=== PATIENT | female | born 1980 | race Caucasian/White ===

== ENCOUNTER 2020-02-01 00:29 | Outpatient (CLI) | payer BC, SELFPAY ==
[2020-02-01 19:00] LABS: SARS-CoV-2 RNA PCR Negative
== END 2020-02-01 00:30 | disposition home or self-care (01) ==
LOC: ANHCOVIDDT 00:29
PROVIDERS: PCP Physician Assistant; Visit Provider Internal Medicine Gastroenterology
DX: Z01.812 Encounter for preprocedural laboratory examination (principal); Z20.828 Contact with and (suspected) exposure to other viral communicable diseases
CPT/HCPCS: 87635; C9803; U0003

== ENCOUNTER 2020-02-03 00:51 | Day surgery (SDC) | payer BC, SELFPAY ==
[2020-01-27 10:31] VITALS: BMI 45.3
[2020-02-03 09:51] VITALS: BP 118/66; PULSE 90; RESP 18; TEMP 36.6; O2SAT 100; BMI 45.0
--- NOTE | 2020-02-03 10:03 | WPDANESEPPF ---
Anes - Initial Pre Proc Eval Procedure: Operation Date: 02/03/20 10:30 Proposed Procedures p Colonoscopy - Lobo Simmons MD Date/Time: 02/03/20 10:03 Surgeon: Lobo Simmons MD Pre Op Diagnosis: Change in Bowel Habits, Diarrhea Patient Data Age: 39 Gender: F Height: 5 ft 4 in Weight: 119 kg Last Vital Signs Temp 36.6 C 02/03/20 09:51 Pulse 90 02/03/20 09:51 Resp 18 02/03/20 09:51 BP 118/66 02/03/20 09:51 Pulse Ox 100 02/03/20 09:51 Allergies Allergy/AdvReac Type Severity Reaction Status Date / Time tetrahydrozoline Allergy Swelling Verified 02/03/20 09:49 [From Visine] of the Eye Home Medications Medication Instructions Recorded Confirmed Type albuterol sulfate 2 puff INHALATION PRN PRN 01/27/20 01/27/20 History alprazolam 0.125 mg PO PRN PRN 01/27/20 01/27/20 History amitriptyline 10 mg PO HS 01/27/20 02/03/20 History Patient hx anesthesia problems: none Family hx anesthesia problems: none [facility] Past Medical History Medical History (Updated 02/03/20 @ 10:25 by Abdoul Galvez MD) Anxiety Asthma Morbid obesity Surgical History Surgical History (Updated 02/03/20 @ 10:26 by Abdoul Galvez MD) History of ankle surgery History of section Social History Social History Smoking packs per day: 1 Smoking cigarettes per day: 20.0 Years smoked: 20 Smoking pack-years: 20.00 Smoking status: Current every day smoker Tobacco type: cigarettes Alcohol intake: current Substance use: never Substance use type: does not use Living arrangements: with family Spiritual care concerns: No Anes - Eval Final PreProcedure Day of Procedure 02/03/20 10:03 Patient weight: morbidly obese Heart: regular rate and rhythm Lungs: clear to auscultation Airway: Mallampati scale class II Neurological: alert and oriented Last oral intake: >/= 8 hours ASA classification: III Emergent: no Anesthetic plan: proceed Anesthesia type and monitoring: general GIVS and standard monitoring Informed Consent: The patient's anesthetic plan and its attendant risks and benefits were discussed with the patient/family/POA. Questions were solicited and answers provided to the satisfaction of the patient/family/POA.
--- NOTE | 2020-02-03 10:24 | PM.HPGS ---
History of Present Illness History of Present Illness Consent: Risks, benefits, and alternatives have been discussed and questions answered. Patient agrees to proceed with procedure. Chief complaint: Change in Bowel Habits, Diarrhea PMFSH Past Medical History Medical History Anxiety Asthma Morbid obesity Surgical History Surgical History History of ankle surgery History of section Social History Social History Smoking packs per day: 1 Smoking cigarettes per day: 20.0 Years smoked: 20 Smoking pack-years: 20.00 Smoking status: Current every day smoker Tobacco type: cigarettes Alcohol intake: current Substance use: never Substance use type: does not use Living arrangements: with family Spiritual care concerns: No Meds Home Medications and Allergies Home Medications Medication Instructions Recorded Confirmed Type albuterol sulfate 2 puff INHALATION PRN PRN 01/27/20 01/27/20 History alprazolam 0.125 mg PO PRN PRN 01/27/20 01/27/20 History amitriptyline 10 mg PO HS 01/27/20 02/03/20 History Allergies Allergy/AdvReac Type Severity Reaction Status Date / Time tetrahydrozoline Allergy Swelling Verified 02/03/20 09:49 [From Visine] of the Eye Vital Signs Vital Signs - 24 hr 02/03/20 09:51 Temperature 36.6 C Pulse Rate 90 Respiratory Rate 18 Blood Pressure 118/66 Pulse Oximetry 100 Exam Const: Orientation/consciousness: patient oriented x3 Resp: Auscultation: clear to auscultation bilaterally Cardio: Rate: regular rate Rhythm: regular rhythm Heart sounds: no murmurs GI: GI Palp: Yes Soft to palpation, No Tenderness to palpation present (GI), Yes No hepatosplenomegaly present and No Palpable mass present Auscultation: normal bowel sounds Neuro: General: patient oriented x3 and no focal motor deficits Extrem: General: no pedal edema Assessment and Plan Additional Plan colonoscopy for evaluation of chronic diarrhea
[2020-02-03] MEDS: LACTATED RINGERS 1,000 ML 150 ML IV CONT (10:32)
[2020-02-03 11:16] VITALS: BP 122/69; PULSE 76; RESP 21; O2SAT 100
[2020-02-03 11:26] VITALS: BP 117/66; PULSE 74; RESP 20; O2SAT 100
[2020-02-03 11:37] VITALS: BP 106/73; PULSE 72; RESP 18; O2SAT 100
== END 2020-02-03 11:46 | disposition home or self-care (01) ==
PROVIDERS: PCP Physician Assistant; Visit Provider Internal Medicine Gastroenterology
PROC: 0DJD8ZZ Inspection of Lower Intestinal Tract, Via Natural or Artificial Opening Endoscopic (ICD-10-PCS; CPT 45378; principal; 2020-02-03 10:30)
DX: R19.7 Diarrhea, unspecified (principal); K63.5 Polyp of colon; J45.909 Unspecified asthma, uncomplicated; F41.9 Anxiety disorder, unspecified; E66.01 Morbid (severe) obesity due to excess calories; Z68.42 Body mass index [BMI] 45.0-49.9, adult; F17.210 Nicotine dependence, cigarettes, uncomplicated
CPT/HCPCS: 45380; 88305; J2704; J7120

== ENCOUNTER 2021-08-13 08:49 | Outpatient (CLI) | payer BC, SELFPAY ==
--- NOTE | 2021-08-20 15:36 | WPDHOMESLEEP ---
Sleep Study - Home Unattended Date of Study: 08/13/21 Ordering Provider: Nichole Saldivar DO Interpreting Provider: Nichole Saldivar DO Home Sleep Study Type: Apnea Link Air Height: 1.63 m Weight: 109.769 kg Body Mass Index: 41.5 Neck Circumference (inches): 15 [place]: 5 Reason for Sleep Study Snoring, unrefreshing sleep Sleep History The patient is a 40-year-old female with irritable bowel syndrome-diarrhea predominant, asthma, and anxiety that had a sleep study ordered by her primary care for evaluation of sleep apnea. 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 She denies awakening from sleep short of breath. She denies awakening at night with heartburn, belching or cough. She frequently snores loud enough that others complain. She occasionally has trouble sleeping when she has a cold. He denies waking up gasping for air throughout the night. She rarely has breathing problems at night observed by herself or others. She denies sweating excessively at night. She denies having heart palpitations or irregular heartbeats during the night. He rarely falls asleep during the day and never while driving. She denies sleep paralysis and cataplexy. She rarely has trouble at school or work due to sleepiness. She rarely experiences vivid dreamlike scenes upon awakening or falling asleep. Rarely has nightmares. She occasionally remembers her dreams. She rarely has thoughts racing through her mind. She rarely feels sad or depressed. She occasionally has anxiety. She denies having muscular tension. She denies noticing parts of her body jerk. She denies kicking during the night. He denies having crawling and aching feelings in her legs as well as leg pain during the night. She occasionally grinds her teeth during sleep but never awakens with morning jaw pain. She denies being bothered by pain during the day and being awakened by pain during the night. He occasionally wakes up feeling stiff in morning. She occasionally wakes up with sore or achy muscles. She occasionally wakes up with pain in the neck, spine and other joints. She goes to bed at 11:30 p.m. on weekdays and midnight on the weekends. It takes her 30 minutes to fall asleep. She wakes once throughout the night for unknown reasons. It takes her 5 minutes to fall back asleep. She typically gets 6 and hours of sleep per night. She will stay in bed for 5 minutes after waking up in the morning. She currently lives with her and adult child. She will consume caffeinated beverages within 2 hours of bedtime. She does not engage in physical exercise before bedtime. She will watch television before falling asleep. She does not take naps in the afternoon or the evening. She drinks 2-3 caffeinated beverages per day. She currently smokes 1 pack of cigarettes per day. She denies alcohol and recreational drug use. [facility] Past Medical History Medical History Anxiety Asthma Morbid obesity Surgical History Surgical History History of ankle surgery History of section Social History Social History Smoking packs per day: 1 Smoking cigarettes per day: 20.0 Years smoked: 20 Smoking pack-years: 20.00 Smoking status: Current every day smoker Tobacco type: cigarettes Alcohol intake: current Substance use: never Substance use type: does not use Spiritual care concerns: No Medications Home Medications Medication Instructions Recorded Confirmed Type albuterol sulfate 2 puff INHALATION PRN PRN 01/27/20 01/27/20 History alprazolam 0.125 mg PO PRN PRN 01/27/20 01/27/20 History amitriptyline 10 mg PO HS 01/27/20 02/03/20 History Sleep Procedure This test was performed using 4 channel monitoring including respiratory effort channel, snoring channel, heart rate jan
[2021-08-20 15:45] VITALS: BMI 41.5
--- NOTE | 2022-03-26 08:17 | SLEEP ---
spoke with p it is unclear why pt was not set up with device. p to set pt up felicity
== END 2021-08-14 12:07 | disposition home or self-care (01) ==
LOC: ANHCSM 08:50
PROVIDERS: PCP Physician Assistant; Visit Provider Family Medicine
DX: G47.9 Sleep disorder, unspecified (principal); G47.33 Obstructive sleep apnea (adult) (pediatric)
CPT/HCPCS: 95806

== ENCOUNTER 2023-09-12 13:19 | Outpatient (CLI) | payer BC, SELFPAY ==
[2023-09-12 13:46] LABS: Basophils Percent Auto 0.5 % (0.2-1.2); Eosinophils Absolute Auto 0.1 K/mm3 (0-0.3); Hematocrit 38.5 % (37.0-47.0); Hemoglobin 13.9 g/dL (12.0-15.0); Immature Granulocyte Absolute 0.03 K/mm3 (0.00-0.031); Immature Granulocyte Percent A 0.4 % (0-0.5); Lymphocytes Absolute Auto 2.28 K/mm3 (0.9-3.2); Lymphocytes Percent Auto 29.5 % (18.3-44.2); Mean Corpuscular HGB Conc 36.1 g/dl (32-36); Mean Corpuscular Hemoglobin 31.8 pg (26-34); Mean Corpuscular Volume 88.1 fl (80-100); Mean Platelet Volume 11.2 fl (7.4-10.4); Monocytes Absolute Auto 0.5 K/mm3 (0.1-0.6); Monocytes Percent Auto 5.8 % (2.6-8.5); Neutrophils Absolute Auto 4.9 K/mm3 (1.3-6.7); Neutrophils Percent Auto 62.8 % (45.5-73.1); Platelet Count Result 185 k/mm3 (150-375); Red Blood Count 4.37 M/mm3 (4.2-5.4); Red Cell Distribution Width 11.6 % (11.5-14.5); White Blood Count 7.7 K/mm3 (4.5-10.0)
[2023-09-12 16:27] LABS: Iron 131 ug/dL (37-170)
[2023-09-12 16:37] LABS: Transferrin 202 mg/dL (206-381)
[2023-09-12 16:41] LABS: Percent Iron Saturation 47 % (20-50)
== END 2023-09-12 13:20 | disposition home or self-care (01) ==
LOC: ANHLAB 13:22
PROVIDERS: Nurse Practitioner Family; PCP Physician Assistant; Visit Provider Internal Medicine Hematology & Oncology
DX: E83.119 Hemochromatosis, unspecified (principal)
CPT/HCPCS: 36415; 82607; 82728; 83540; 83550; 84466; 85025

== ENCOUNTER 2023-10-27 11:10 | Outpatient (CLI) | payer BC, SELFPAY ==
--- NOTE | ~2023-10-27 | XR_ITS ---
PA, oblique, and lateral views of the right thumb CLINICAL HISTORY: Pain, prior injury FINDINGS: Questionable tiny avulsion fracture from the volar aspect of the base the distal phalanx of the thumb. Joint spaces are intact. Soft tissues are unremarkable. IMPRESSION: Questionable tiny avulsion fracture from the volar aspect of the base of the distal phalanx of the th umb. Reviewed, dictated and finalized at location M. IMPRESSION: Questionable tiny avulsion fracture from the volar aspect of the base of the di stal phalanx of the thumb.
--- NOTE | ~2023-10-27 | XR_ITS ---
AP and lateral views of the sacrum/coccyx CLINICAL HISTORY: Pain FINDINGS: No fracture or dislocation seen. Visualized joint spaces are intact. Soft tissues are unrem arkable. IMPRESSION: No significant abnormality seen. Reviewed, dictated and finalized at location .
== END 2023-10-27 11:11 | disposition home or self-care (01) ==
PROVIDERS: PCP Physician Assistant; Visit Provider Plastic Surgery
DX: M53.3 Sacrococcygeal disorders, not elsewhere classified (principal); M79.644 Pain in right finger(s)
CPT/HCPCS: 72220; 73140

== ENCOUNTER 2024-01-08 15:15 | Outpatient (CLI) | payer BC, SELFPAY ==
[2024-01-08 15:34] LABS: Basophils Absolute Auto 0.1 K/mm3 (0.0-0.1); Basophils Percent Auto 0.6 % (0.2-1.2); Eosinophils Absolute Auto 0.2 K/mm3 (0-0.3); Eosinophils Percent Auto 1.5 % (0-4.4); Hematocrit 36.9 % (37.0-47.0); Immature Granulocyte Absolute 0.03 K/mm3 (0.00-0.031); Immature Granulocyte Percent A 0.3 % (0-0.5); Lymphocytes Absolute Auto 2.92 K/mm3 (0.9-3.2); Lymphocytes Percent Auto 29.9 % (18.3-44.2); Mean Corpuscular HGB Conc 35.2 g/dl (32-36); Mean Corpuscular Hemoglobin 31.4 pg (26-34); Mean Corpuscular Volume 89.1 fl (80-100); Mean Platelet Volume 10.5 fl (7.4-10.4); Monocytes Absolute Auto 0.6 K/mm3 (0.1-0.6); Monocytes Percent Auto 5.6 % (2.6-8.5); Neutrophils Percent Auto 62.1 % (45.5-73.1); Platelet Count Result 249 k/mm3 (150-375); Red Blood Count 4.14 M/mm3 (4.2-5.4); White Blood Count 9.8 K/mm3 (4.5-10.0)
[2024-01-08 17:45] LABS: Iron 68 ug/dL (37-170)
[2024-01-08 18:01] LABS: Percent Iron Saturation 21 % (20-50)
== END 2024-01-08 15:16 | disposition home or self-care (01) ==
LOC: ANHLAB 15:17
PROVIDERS: Nurse Practitioner Family; PCP Physician Assistant; Visit Provider Internal Medicine Hematology & Oncology
DX: E83.119 Hemochromatosis, unspecified (principal)
CPT/HCPCS: 36415; 82728; 83540; 83550; 85025

== ENCOUNTER 2024-04-01 08:59 | Outpatient (CLI) | payer BC, SELFPAY ==
[2024-04-01 09:18] LABS: Basophils Absolute Auto 0.1 K/mm3 (0.0-0.1); Basophils Percent Auto 0.8 % (0.2-1.2); Eosinophils Absolute Auto 0.1 K/mm3 (0-0.3); Eosinophils Percent Auto 1.2 % (0-4.4); Hematocrit 36.8 % (37.0-47.0); Hemoglobin 13.2 g/dL (12.0-15.0); Immature Granulocyte Absolute 0.03 K/mm3 (0.00-0.031); Immature Granulocyte Percent A 0.4 % (0-0.5); Lymphocytes Absolute Auto 2.34 K/mm3 (0.9-3.2); Lymphocytes Percent Auto 30.1 % (18.3-44.2); Mean Corpuscular HGB Conc 35.9 g/dl (32-36); Mean Corpuscular Hemoglobin 31.2 pg (26-34); Mean Platelet Volume 11.1 fl (7.4-10.4); Monocytes Absolute Auto 0.5 K/mm3 (0.1-0.6); Monocytes Percent Auto 6.6 % (2.6-8.5); Neutrophils Absolute Auto 4.7 K/mm3 (1.3-6.7); Neutrophils Percent Auto 60.9 % (45.5-73.1); Platelet Count Result 189 k/mm3 (150-375); Red Blood Count 4.23 M/mm3 (4.2-5.4); Red Cell Distribution Width 12.1 % (11.5-14.5); White Blood Count 7.8 K/mm3 (4.5-10.0)
[2024-04-01 10:37] LABS: Iron 134 ug/dL (37-170)
[2024-04-01 10:38] LABS: Alanine Aminotransferase 12 U/L (6-35); Albumin Level 4.2 g/dL (3.5-5.1); Alkaline Phosphatase 80 U/L (38-126); Anion Gap 2 mmol/L (4-12); Aspartate Amino Transferase 53 U/L (14-36); Bilirubin,Total 0.9 mg/dL (0.2-1.3); Blood Urea Nitrogen 11 mg/dL (7-17); Carbon Dioxide 31 mmol/L (22-30); Chloride 106 mmol/L (98-107); Estimated Glomerular Filt Rate > 60; Glucose 94 mg/dL (65-110); Potassium 3.9 mmol/L (3.4-5.0); Sodium 139 mmol/L (137-145)
[2024-04-01 10:46] LABS: Percent Iron Saturation 50 % (20-50)
== END 2024-04-01 09:00 | disposition home or self-care (01) ==
LOC: ANHLAB 09:06
PROVIDERS: PCP Physician Assistant; Visit Provider Internal Medicine Hematology & Oncology
DX: E83.119 Hemochromatosis, unspecified (principal)
CPT/HCPCS: 36415; 80053; 82728; 83540; 83550; 85025

== ENCOUNTER 2024-06-22 08:20 | Outpatient (CLI) | payer BC, SELFPAY | END 2024-06-22 08:21 | disposition home or self-care (01) | LOC: MICIMG 08:21 | PROVIDERS: PCP Physician Assistant; Visit Provider Physician Assistant | DX: R59.0 Localized enlarged lymph nodes (principal) | CPT/HCPCS: 70491; Q9967 ==